=== PATIENT | female | born 1985 | race Two or more races ===

== ENCOUNTER 2017-07-31 14:13 | Emergency (ER) | payer OTHER ==
[2017-07-31] MEDS ORDERED: NS 0.9% 1000 ML* 2,000 ML IV ONE (15:30)
[2017-07-31] MEDS ORDERED: Ondansetron INJ* 2 MG/ML VIAL IV ONE (15:30)
[2017-07-31] MEDS ORDERED: Ketorolac INJ* 30 MG/ML 1 ML VIAL IV ONE (15:30)
[2017-07-31 15:44] LABS: ABS Basophils 0.1 10^3/ul (0-0.2); ABS Eosinophils 0.3 10^3/ul (0-0.6); ABS Lymphocytes 1.1 10^3/ul (1.0-4.8); ABS Monocytes 0.5 10^3/ul (0-0.8); ABS Neutrophils 14.5 10^3/ul (1.5-7.7); ABS Nucleated RBC 0 10^3/ul; Eosinophil % 1.6 % (0-6); Hematocrit 42 % (35-47); Hemoglobin 13.6 g/dl (12.0-16.0); Lymphocyte % 6.6 % (25-47); Mean Corpuscular HGB Conc 33 g/dl (31-36); Mean Corpuscular Hemoglobin 28 pg (27-31); Mean Corpuscular Volume 84 fL (80-97); Mean Platelet Volume 8 um3 (7.4-10.4); Nucleated Red Blood Cells % 0; Platelet Count 295 10^3/ul (150-450); Red Blood Count 4.94 10^6/ul (4.0-5.4); Red Cell Distribution Width 15 % (10.5-15); White Blood Count 16.4 10^3/ul (3.5-10.8)
[2017-07-31 15:47] LABS: INR 0.87 (0.77-1.02)
[2017-07-31 15:53] LABS: EGFR Non-African American 103.1 (>60)
[2017-07-31] MEDS ORDERED: Iohexol 300* (CONTRAST) 10 ML SDV IV ONE (16:10)
[2017-07-31 17:49] LABS: Urine Appearance Cloudy; Urine Blood Negative (Negative); Urine Color Yellow; Urine Ketones Negative (Negative); Urine Protein Negative (Negative); Urine Specific Gravity 1.018 (1.010-1.030); Urine Urobilinogen Negative (Negative)
--- NOTE | 2017-07-31 18:36 | RAD ---
CLINICAL HISTORY: Epigastric pain, left-sided pain, left lower quadrant pain, bloody diarrhea COMPARISON: September 24, 2015 TECHNIQUE: Multiple contiguous axial CT scans were obtained of the abdomen and pelvis after the administration of intravenous contrast. Coronal and sagittal multiplanar reformations are submitted for review. Oral contrast was administered. Delayed images were obtained through the abdomen and pelvis. FINDINGS: LUNG BASES: The lung bases are clear. LIVER: The liver is diffusely low in attenuation compared to the spleen. There are no focal hepatic parenchymal masses. The liver measures 21 cm in long axis. BILE DUCTS: There is no intrahepatic or extrahepatic biliary dilatation. GALLBLADDER: The gallbladder is not visualized. Surgical clips are noted in the gallbladder fossa. PANCREAS: The pancreas is normal, without mass or ductal dilatation. SPLEEN: Normal in size and appearance. UPPER GI TRACT: Evaluation of the gastrointestinal tract is limited by incomplete gastric distention. The upper GI tract is unremarkable. SMALL BOWEL AND MESENTERY: The small bowel is normal in contour, course, and caliber. There is no obstruction or dilatation. COLON: The colon is normal in contour, course, caliber. There is no pericolonic inflammatory change. There is a tubular, vermiform, hollow viscus that is blind ending, and originates from the cecum, consistent with a normal appendix. There is no periappendiceal inflammatory change. This is best seen on axial images 68 through 73 ADRENALS: Normal bilaterally. KIDNEYS: The kidneys are normal in shape, size, contour, and axis. There is no hydronephrosis or nephrolithiasis. BLADDER: The bladder is incompletely distended but is grossly normal. PELVIC ORGANS: The uterus and adnexa are grossly normal for technique. AORTA: The aorta is normal. IVC: Unremarkable LYMPH NODES: There is no lymphadenopathy by size criteria. ABDOMINAL WALL: There is a small fat-containing of focal hernia. BONES AND SOFT TISSUES: Unremarkable OTHER: None IMPRESSION: HEPATOMEGALY WITH FATTY INFILTRATION OF THE LIVER. NO ACUTE CT PATHOLOGY OF THE VISUALIZED ABDOMEN OR PELVIS.
[2017-07-31] MEDS ORDERED: Ondansetron ODT TAB* 4 MG PO ONE (18:45)
[2017-07-31] MEDS ORDERED: Acetaminophen TAB* 325 MG PO ONE (18:45)
[2017-07-31] MEDS ORDERED: Ciprofloxacin TAB* 500 MG PO ONE ×2 (18:46→18:47)
[2017-07-31] MEDS ORDERED: metroNIDAZOLE TAB* 250 MG PO ONE ×2 (18:46→18:47)
[2017-07-31] MEDS ORDERED: O ndansetron ODT 4MG 2TAB PRPK 4 MG PAK PO ONE (18:55)
[2017-07-31 19:07] VITALS: BP 119/80
--- NOTE | 2017-07-31 21:58 | ED ---
Jesse Lemon Sixian, scribed for Thiago Slaughter MD on 07/31/17 at 1535 . Abdominal Pain/Female - HPI Summary HPI Summary: This patient is a 32 year old F presenting to ED with a chief complaint of abdominal pain since 0630 today. She felt dehydrated this morning and vomiting when she drank water. The patient rates the pain 7/10 in severity. Symptoms aggravated by food intake and alleviated by nothing. Patient reports vomiting, diarrhea, nausea, bloody stool. Patient denies sore throat. - History of Current Complaint Chief Complaint: EDAbdPain Stated Complaint: ABD PAIN,VOMITING Time Seen by Provider: 07/31/17 15:16 Hx Obtained From: Patient Hx Last Menstrual Period: 12/01/14 Onset/Duration: Gradual Onset, Lasting Hours, Still Present Timing: Hours Severity Currently: Moderate Pain Intensity: 7 Pain Scale Used: 0-10 Numeric Aggravating Factor(s): Food Alleviating Factor(s): Nothing Associated Signs and Symptoms: Positive: Other: - Patient reports vomitting, diarrhea, nausea, bloody stool. Patient denies sore throat. Allergies/Adverse Reactions: Allergies Allergy/AdvReac Type Severity Reaction Status Date / Time morphine Allergy Mild See Comment Verified 07/31/17 18:48 tramadol Allergy Mild Palpitation Verified 07/31/17 18:48 s clavulanic acid Allergy Unknown Unknown Verified 07/31/17 18:48 Reaction Details PMH/Surg Hx/FS Hx/Imm Hx Endocrine/Hematology History: Denies: Hx Diabetes, Hx Thyroid Disease Cardiovascular History: Denies: Hx Congestive Heart Failure, Hx Hypertension Respiratory History: Reports: Hx Asthma, Hx Pneumonia, Hx Seasonal Allergies Denies: Hx Chronic Obstructive Pulmonary Disease (COPD) GI History: Reports: Hx Gall Bladder Disease - cholecystectomy, Hx Irritable Bowel, Other GI Disorders - IBS?,DX'D W/ENDOMETRIOSIS Denies: Hx Ulcer History: Reports: Hx Kidney Infection, Hx Kidney Stones, Other Problems/ Disorders - PYELONEPHRITIS Denies: Hx Renal Disease Musculoskeletal History: Reports: Hx Back Problems - 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), Hx Bursitis - left hip Comment Only: Other Musculoskeletal History - BURSITIS LEFT HIP Sensory History: Reports: Hx Contacts or Glasses Opthamlomology History: Reports: Hx Contacts or Glasses Psychiatric History: Reports: Hx Anxiety, Hx Depression - Surgical History Surgery Procedure, Year, and Place: BLANCA/C-SECTIONS/TUBAL LIGATION, right foot surgery, left thumb Hx Anesthesia Reactions: No - Immunization History Date of Tetanus Vaccine: Unk Date of Influenza Vaccine: None Infectious Disease History: No Infectious Disease History: Reports: Hx of Known/Suspected MRSA - 2 years ago Denies: Hx Clostridium Difficile, Hx Hepatitis, Hx Human Immunodeficiency Virus (HIV), Hx Shingles, Hx Tuberculosis, Hx Known/Suspected VRE, Hx Known/ Suspected VRSA, History Other Infectious Disease, Traveled Outside the [place] in Last 30 Days - Family History Known Family History: Positive: Diabetes Negative: Hypertension - Social History Alcohol Use: Occasionally Hx Substance Use: No Substance Use Type: Reports: Marijuana Substance Use Comment - Amount & Last Used: OPIATES AND "INA" hx Hx Tobacco Use: Yes Smoking Status (MU): Heavy Every Day Tobacco Smoker Type: Cigarettes Amount Used/How Often: 0.5 PPD Length of Time of Smoking/Using Tobacco: 10 years Have You Smoked in the Last Year: Yes Review of Systems Negative: Sore Throat Positive: Abdominal Pain, Vomiting, Diarrhea, Nausea All Other Systems Reviewed And Are Negative: Yes Physical Exam - Summary Physical Exam Summary: General: well-appearing, mild pain and distress Skin: warm, color reflects adequate perfusion, dry Head: normal Eyes: EOMI, RUSLAN ENT: normal Neck: supple, nontender Respiratory: CTA, breath sounds present Cardiovascular: RRR Abdomen: soft, Epigastrium and LLQ tenderness Bowel: present Musculoskeletal: normal, strength/ROM intact Neurological: normal, sensory/motor intact, A&O x3 Psychological: affect/mood appropriate Triage Information Reviewed: Yes Vital Signs On Initial Exam: Initial Vitals Temp Pulse Resp BP Pulse Ox 98.8 F 128 22 124/87 98 07/31/17 14:15 07/31/17 14:15 07/31/17 14:15 07/31/17 14:15 07/31/17 14:15 Vital Signs Reviewed: Yes Diagnostics - Vital Signs Vital Signs Temp Pulse Resp BP Pulse Ox 07/31/17 14:15 98.8 F 128 22 124/87 98 - Laboratory Lab Results: Lab Results 07/31/17 07/31/17 07/31/17 Range/Units 15:28 15:28 15:28 WBC 16.4 H (3.5-10.8) 10^3/ul RBC 4.94 (4.0-5.4) 10^6/ul Hgb 13.6 (12.0-16.0) g/dl Hct 42 (35-47) % MCV 84 (80-97) fL MCH 28 (27-31) pg MCHC 33 (31-36) g/dl RDW 15 (10.5-15) % Plt Count 295 (150-450) 10^3/ul MPV 8 (7.4-10.4) um3 Neut % (Auto) 88.5 H (38-83) % Lymph % (Auto) 6.6 L (25-47) % [place] % (Auto) 2.9 (0-7) % Eos % (Auto) 1.6 (0-6) % Baso % (Auto) 0.4 (0-2) % Absolute Neuts (auto) 14.5 H (1.5-7.7) 10^3/ul Absolute Lymphs (auto) 1.1 (1.0-4.8) 10^3/ul Absolute Monos (auto) 0.5 (0-0.8) 10^3/ul Absolute Eos (auto) 0.3 (0-0.6) 10^3/ul Absolute Basos (auto) 0.1 (0-0.2) 10^3/ul Absolute Nucleated RBC 0 10^3/ul Nucleated RBC % 0 INR (Anticoag Therapy) (0.77-1.02) APTT (26.0-36.3) seconds Sodium 135 (133-145) mmol/L Potassium 4.1 (3.5-5.0) mmol/L Chloride 105 (101-111) mmol/L Carbon Dioxide 23 (22-32) mmol/L Anion Gap 7 (2-11) mmol/L BUN 11 (6-24) mg/dL Creatinine 0.66 (0.51-0.95) mg/dL Est GFR ( Amer) 132.6 (>60) Est GFR (Non-Af Amer) 103.1 (>60) BUN/Creatinine Ratio 16.7 (8-20) Glucose 113 H (70-100) mg/dL Lactic Acid 1.1 (0.5-2.0) mmol/L Calcium 9.5 (8.6-10.3) mg/dL Total Bilirubin 0.50 (0.2-1.0) mg/dL AST 15 (13-39) U/L ALT 15 (7-52) U/L Alkaline Phosphatase 79 (34-104) U/L C-Reactive Protein 9.28 H (< 5.00) mg/L Total Protein 7.3 (6.4-8.9) g/dL Albumin 4.2 (3.2-5.2) g/dL Globulin 3.1 (2-4) g/dL Albumin/Globulin Ratio 1.4 (1-3) Lipase 11 (11.0-82.0) U/L Beta HCG, Quant < 0.60 mIU/mL Urine Color Urine Appearance Urine pH (5-9) Ur Specific [place] (1.010-1.030) Urine Protein (Negative) Urine Ketones (Negative) Urine Blood (Negative) Urine Nitrate (Negative) Urine Bilirubin (Negative) Urine Urobilinogen (Negative) Ur Leukocyte Esterase (Negative) Urine Glucose (Negative) 07/31/17 07/31/17 Range/Units 15:28 17:20 WBC (3.5-10.8) 10^3/ul RBC (4.0-5.4) 10^6/ul Hgb (12.0-16.0) g/dl Hct (35-47) % MCV (80-97) fL MCH (27-31) pg MCHC (31-36) g/dl RDW (10.5-15) % Plt Count (150-450) 10^3/ul MPV (7.4-10.4) um3 Neut % (Auto) (38-83) % Lymph % (Auto) (25-47) % [place] % (Auto) (0-7) % Eos % (Auto) (0-6) % Baso % (Auto) (0-2) % Absolute Neuts (auto) (1.5-7.7) 10^3/ul Absolute Lymphs (auto) (1.0-4.8) 10^3/ul Absolute Monos (auto) (0-0.8) 10^3/ul Absolute Eos (auto) (0-0.6) 10^3/ul Absolute Basos (auto) (0-0.2) 10^3/ul Absolute Nucleated RBC 10^3/ul Nucleated RBC % INR (Anticoag Therapy) 0.87 (0.77-1.02) APTT 30.0 (26.0-36.3) seconds Sodium (133-145) mmol/L Potassium (3.5-5.0) mmol/L Chloride (101-111) mmol/L Carbon Dioxide (22-32) mmol/L Anion Gap (2-11) mmol/L BUN (6-24) mg/dL Creatinine (0.51-0.95) mg/dL Est GFR ( Amer) (>60) Est GFR (Non-Af Amer) (>60) BUN/Creatinine Ratio (8-20) Glucose (70-100) mg/dL Lactic Acid (0.5-2.0) mmol/L Calcium (8.6-10.3) mg/dL Total Bilirubin (0.2-1.0) mg/dL AST (13-39) U/L ALT (7-52) U/L Alkaline Phosphatase (34-104) U/L C-Reactive Protein (< 5.00) mg/L Total Protein (6.4-8.9) g/dL Albumin (3.2-5.2) g/dL Globulin (2-4) g/dL Albumin/Globulin Ratio (1-3) Lipase (11.0-82.0) U/L Beta HCG, Quant mIU/mL Urine Color Yellow Urine Appearance Cloudy Urine pH 5.0 (5-9) Ur Specific [place] 1.018 (1.010-1.030) Urine Protein Negative (Negative) Urine Ketones Negative (Negative) Urine Blood Negative (Negative) Urine Nitrate Negative (Negative) Urine Bilirubin Negative (Negative) Urine Urobilinogen Negative (Negative) Ur Leukocyte Esterase Negative (Negative) Urine Glucose Negative (Negative) Result Diagrams: 07/31/17 15:28 07/31/17 15:28 Lab Statement: Any lab studies that have been ordered have been reviewed, and results considered in the medical decision making process. - CT abd/pel CT Interpretation Completed By: Radiologist - HEPATOMEGALY WITH FATTY INFILTRATION OF THE LIVER. NO ACUTE CT PATHOLOGY OF THE VISUALIZED ABDOMEN OR PELVIS. ED physician has reviewed this radiology report. Abdominal Pain Fem Course/Dx - Course Course Of Treatment: BP noted and advised to follow up with PCP. Medications reviewed. Allergies noted. DISCUSSED RESULTS WITH PATIENT. WILL TREAT WITH CIPRO/FLAGYL DUE TO FEVER. PATIENT REPORTS SHE PREFERS TO GO HOME. F/U PMD; RETURN IF WORSE. - Diagnoses Provider Diagnoses: Elevated BP without diagnosis of hypertension, Abdominal pain, Vomiting and diarrhea Discharge - Discharge Plan Condition: Stable Disposition: HOME Prescriptions: Ciprofloxacin TAB* [Cipro 500 MG TAB*] 500 mg PO BID #8 tab metroNIDAZOLE [Flagyl 500 MG TAB] 500 mg PO TID #13 tab Ondansetron ODT TAB* [Zofran 4 MG Odt TAB*] 4 mg PO Q6H PRN #10 tab.odt PRN Reason: Nausea Patient Education Materials: Acute Nausea and Vomiting (ED), Abdominal Pain (ED ) Referrals: Oneil Diane MD [Primary Care Provider] - Additional Instructions: FOLLOW UP WITH YOUR DOCTOR. RETURN TO THE EMERGENCY DEPARTMENT FOR ANY WORSENING OF YOUR CONDITION OR QUESTIONS OR CONCERNS. YOUR BLOOD PRESSURE WAS ELEVATED TODAY; FOLLOW UP WITH YOUR PRIMARY CARE DOCTOR WITHIN THE NEXT 1 WEEK. The documentation as recorded by the Jesse austin Sixian accurately reflects the service I personally performed and the decisions made by me, Thiago Slaughter MD.
== END 2017-07-31 19:21 | disposition home or self-care (01) ==
LOC: ED 14:13
DX: R10.9 Unspecified abdominal pain (principal); R11.2 Nausea with vomiting, unspecified; R19.7 Diarrhea, unspecified; I10 Essential (primary) hypertension; K76.0 Fatty (change of) liver, not elsewhere classified; F17.210 Nicotine dependence, cigarettes, uncomplicated; Z88.8 Allergy status to other drugs, medicaments and biological substances; Z88.5 Allergy status to narcotic agent
CPT/HCPCS: 36415; 74177; 80053; 81003; 83605; 83690; 84702; 85025; 85610; 85730; 86140; 87040; 96361; 96374; 96375; 99284; A9270-GY; J1885; J2405; Q9967

== ENCOUNTER 2017-08-04 16:59 | Emergency (ER) | payer OTHER ==
--- NOTE | 2017-08-04 19:13 | ED ---
Abdominal Pain/Female - HPI Summary HPI Summary: This 32-year-old female comes back to the emergency department today after being seen 3 days ago with chief complaint of nausea vomiting diarrhea she has continued nausea vomiting diarrhea she's had no fevers she did have a bloody stool today which she described as watery with blood in it she was able to tolerate a bowl of rice this afternoon but that was her only meal she states that she is only been able to eat 3 times since being seen here with us 3 days ago she denies any recent travel denies any illness contacts denies antibiotic except for the one she's been given she denies any alcohol use with the Flagyl - History of Current Complaint Chief Complaint: EDAbdPain Stated Complaint: ABD PAIN/BLOOD IN STOOL Time Seen by Provider: 08/04/17 19:12 Hx Obtained From: Patient Hx Last Menstrual Period: 07/2017 ?: No Onset/Duration: Gradual Onset, Lasting Days - 3, Still Present Timing: Constant Severity Initially: Moderate Severity Currently: Moderate Pain Intensity: 7 Pain Scale Used: 0-10 Numeric Location: Discrete At: RUQ, Discrete At: LLQ Radiates: No Aggravating Factor(s): Food Alleviating Factor(s): Nothing Associated Signs and Symptoms: Positive: Nausea, Vomiting, Diarrhea Allergies/Adverse Reactions: Allergies Allergy/AdvReac Type Severity Reaction Status Date / Time morphine Allergy Mild See Comment Verified 07/31/17 18:48 tramadol Allergy Mild Palpitation Verified 07/31/17 18:48 s clavulanic acid Allergy Unknown Unknown Verified 07/31/17 18:48 Reaction Details PMH/Surg Hx/FS Hx/Imm Hx Previously Healthy: No Endocrine/Hematology History: Denies: Hx Diabetes, Hx Thyroid Disease Cardiovascular History: Denies: Hx Congestive Heart Failure, Hx Hypertension Respiratory History: Reports: Hx Asthma, Hx Pneumonia, Hx Seasonal Allergies Denies: Hx Chronic Obstructive Pulmonary Disease (COPD) GI History: Reports: Hx Gall Bladder Disease - cholecystectomy, Hx Irritable Bowel, Other GI Disorders - IBS?,DX'D W/ENDOMETRIOSIS Denies: Hx Ulcer History: Reports: Hx Kidney Infection, Hx Kidney Stones, Other Problems/ Disorders - PYELONEPHRITIS Denies: Hx Renal Disease Musculoskeletal History: Reports: Hx Back Problems - 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), Hx Bursitis - left hip Comment Only: Other Musculoskeletal History - BURSITIS LEFT HIP Sensory History: Reports: Hx Contacts or Glasses Opthamlomology History: Reports: Hx Contacts or Glasses Psychiatric History: Reports: Hx Anxiety, Hx Depression - Cancer History Hx Hematologic Symptoms: No Hx Chemotherapy: No Hx Radiation Therapy: No Hx Palliative Cancer Treatment: No - Surgical History Surgery Procedure, Year, and Place: BLANCA/C-SECTIONS/TUBAL LIGATION, right foot surgery, left thumb Hx Anesthesia Reactions: No - Immunization History Date of Tetanus Vaccine: Unk Date of Influenza Vaccine: None Infectious Disease History: No Infectious Disease History: Reports: Hx of Known/Suspected MRSA - 2 years ago Denies: Hx Clostridium Difficile, Hx Hepatitis, Hx Human Immunodeficiency Virus (HIV), Hx Shingles, Hx Tuberculosis, Hx Known/Suspected VRE, Hx Known/ Suspected VRSA, History Other Infectious Disease, Traveled Outside the [place] in Last 30 Days - Family History Known Family History: Positive: None, Diabetes Negative: Hypertension - Social History Occupation: Employed Full-time - in a restaurant Lives: With Family Alcohol Use: Occasionally Hx Substance Use: No Substance Use Type: Reports: Marijuana Substance Use Comment - Amount & Last Used: OPIATES AND "INA" hx Hx Tobacco Use: Yes Smoking Status (MU): Heavy Every Day Tobacco Smoker Type: Cigarettes Amount Used/How Often: 0.5 PPD Length of Time of Smoking/Using Tobacco: 10 years Have You Smoked in the Last Year: Yes Cessation Counseling: Patient Advised to Stop Review of Systems Constitutional: Other Positive: Fatigue Eyes: Negative ENT: Negative Cardiovascular: Negative Respiratory: Negative Gastrointestinal: Other Positive: Abdominal Pain, Vomiting, Diarrhea, Nausea Genitourinary: Negative Musculoskeletal: Negative Skin: Negative Neurological: Negative Psychological: Normal All Other Systems Reviewed And Are Negative: Yes Physical Exam Triage Information Reviewed: Yes Vital Signs On Initial Exam: Initial Vitals Temp Pulse Resp BP Pulse Ox 98.0 F 98 16 130/78 99 08/04/17 17:06 08/04/17 17:06 08/04/17 17:06 08/04/17 17:06 08/04/17 17:06 Vital Signs Reviewed: Yes Appearance: Positive: Well-Nourished, Ill-Appearing - mild, Pain Distress - mild Skin: Positive: Warm, Skin Color Reflects Adequate Perfusion, Dry Head/Face: Positive: Normal Head/Face Inspection Eyes: Positive: Normal, EOMI, RUSLAN ENT: Positive: Normal ENT inspection, Hearing grossly normal. Negative: Nasal congestion, Trismus, Muffled voice, Hoarse voice, Dental tenderness Neck: Positive: Supple, Nontender Respiratory/Lung Sounds: Positive: Breath Sounds Present Cardiovascular: Positive: Normal, RRR, Pulses are Symmetrical in both Upper and Lower Extremities Abdomen Description: Positive: Soft, Other: - ruq and llq discomfort with palpation. Negative: CVA Tenderness (R), CVA Tenderness (L), Distended, Guarding, Hepatomegaly, McBurney's Point Tenderness Bowel Sounds: Positive: Present Musculoskeletal: Positive: Normal, Strength/ROM Intact Neurological: Positive: Normal, Sensory/Motor Intact, Alert, Oriented to Person Place, Time Psychiatric: Positive: Normal AVPU Assessment: Alert - Jose Coma Scale Best Eye Response: 4 - Spontaneous Best Motor Response: 6 - Obeys Commands Best Verbal Response: 5 - Oriented Coma Scale Total: 15 Diagnostics - Vital Signs Vital Signs Temp Pulse Resp BP Pulse Ox 08/04/17 17:06 98.0 F 98 16 130/78 99 - Laboratory Result Diagrams: 08/04/17 20:00 08/04/17 20:00 Diagnostic Studies Comment: Ultrasound report her imaging precision honer mildly enlarged fatty liver with no acute changes similarly diagnosis report from the CT scan earlier in the week Lab Statement: Any lab studies that have been ordered have been reviewed, and results considered in the medical decision making process. Re-Evaluation - Re-Evaluation First Eval Change: Improved - Patient has not vomited or had diarrhea in the past 6 hours since she's been in the emergency department patient is currently eating a clear liquid frozen ice Second Eval Change: Improved - Patient tolerated clear liquids well we'll discharge to home with family follow-up with Dr. Herrera on Wednesday return to the emergency department for worsening symptoms or should symptoms fail to resolve Abdominal Pain Fem Course/Dx - Course Course Of Treatment: Complete course of antibiotics as prescribed advance diet from clear liquids slowly follow-up with Dr. Herrera on Wednesday return to the emergency Department meantime should symptoms fail to resolve or worsen in any way - Diagnoses Provider Diagnoses: Acute diarrhea, Nausea & vomiting, Fatty liver, Elevated liver enzymes, Viral illness - Provider Notifications Discussed Care Of Patient With: Russell Mckeon - Prior to discharge and care planning Discharge - Discharge Plan Condition: Stable Disposition: HOME Patient Education Materials: Acute Nausea and Vomiting (ED), Acute Diarrhea (ED ), Nutrition Tips for Relief of Diarrhea (ED) Forms: *Work Release Referrals: Oneil Diane MD [Primary Care Provider] - 2 Days
[2017-08-04] MEDS ORDERED: NS 0.9% 1000 ML* 1,000 ML IV ONE (19:30)
[2017-08-04] MEDS ORDERED: Ketorolac INJ* 30 MG/ML 1 ML VIAL IV PUSH ONE (19:51)
[2017-08-04] MEDS ORDERED: Ondansetron INJ* 2 MG/ML VIAL IV ONE (19:52)
[2017-08-04 20:25] LABS: EGFR Non-African American 108.8 (>60)
[2017-08-04 20:31] LABS: INR 0.91 (0.77-1.02)
[2017-08-04 20:43] LABS: ABS Basophils 0 10^3/ul (0-0.2); ABS Eosinophils 0.4 10^3/ul (0-0.6); ABS Monocytes 0.5 10^3/ul (0-0.8); ABS Neutrophils 5.1 10^3/ul (1.5-7.7); ABS Nucleated RBC 0 10^3/ul; Eosinophil % 4.3 % (0-6); Hematocrit 37 % (35-47); Lymphocyte % 32.8 % (25-47); Mean Corpuscular HGB Conc 33 g/dl (31-36); Mean Corpuscular Hemoglobin 27 pg (27-31); Mean Corpuscular Volume 84 fL (80-97); Mean Platelet Volume 9 um3 (7.4-10.4); Nucleated Red Blood Cells % 0.2; Platelet Count 295 10^3/ul (150-450); Red Blood Count 4.37 10^6/ul (4.0-5.4); Red Cell Distribution Width 15 % (10.5-15)
[2017-08-04 21:54] LABS: Urine Appearance Clear; Urine Blood Negative (Negative); Urine Color Yellow; Urine Ketones Negative (Negative); Urine Protein Negative (Negative); Urine Specific Gravity 1.016 (1.010-1.030); Urine Urobilinogen Negative (Negative)
[2017-08-05 00:47] VITALS: BP 112/68
--- NOTE | 2017-08-05 07:44 | RAD ---
INDICATION: Right upper quadrant pain, elevated liver enzymes. COMPARISON: Comparison is made of a prior CT of the abdomen and pelvis from July 31, 2017. TECHNIQUE: Multiple real-time images of the right upper quadrant were obtained. FINDINGS: The patient is status post cholecystectomy. No intra or extrahepatic ductal distention is present. The common bile duct measured 0.4 cm in diameter. The liver is mildly enlarged and increased in echogenicity consistent with fatty infiltration correlating with the prior CT study. No focal abnormality is seen. The pancreas is partially obscured by overlying bowel gas. The right kidney is normal in size without evidence for hydronephrosis. IMPRESSION: 1. STATUS POST CHOLECYSTECTOMY. 2. MILD HEPATOMEGALY AND HEPATIC STEATOSIS.
== END 2017-08-05 00:45 | disposition home or self-care (01) ==
LOC: ED 16:59
DX: R19.7 Diarrhea, unspecified (principal); R11.2 Nausea with vomiting, unspecified; K76.0 Fatty (change of) liver, not elsewhere classified; B34.9 Viral infection, unspecified; R74.9 Abnormal serum enzyme level, unspecified; F17.210 Nicotine dependence, cigarettes, uncomplicated; Z90.49 Acquired absence of other specified parts of digestive tract
CPT/HCPCS: 36415; 76705; 80053; 80074; 81003; 83605; 83690; 84702; 85025; 85610; 86140; 86308; 96361; 96374; 96375; 99284; J1885; J2405

== ENCOUNTER → 2017-12-29 17:45 | Emergency (ER) | payer OTHER ==
[~2017-12-29 17:45] MED LIST: Al Hydrox/Mg Hydrox/Simet LIQ* 30 ML UDC PO ONE; Ketorolac INJ* 30 MG/ML 1 ML VIAL IV PUSH ONE; Lidocaine 2% VISCOUS* 15 ML UDC PO ONE; NS 0.9% 1000 ML* 1,000 ML IV ONE; Ondansetron INJ* 2 MG/ML VIAL IV ONE; fentaNYL* 50 MCG/ML 2 ML VIAL (100 MCG VIAL) IV SLOW PU ONE
--- NOTE | 2017-12-29 18:18 | ED ---
HPI Chest Pain - HPI Summary HPI Summary: This is [facility] documenting for attending Laura Garcia MD. Pt is a 32 y/o F c/o CP onset 45 mins ago. Pain is located in the mid sternum radiating through to her back and is rated a 9/10. Assoc. Sx: bilat LE tingling , CP, chills. She was at the grocery store when she started experiencing Sx. Pt reports she felt like she was going to pass out. SHx: quit 4 months ago: smoked 1 ppd prior. Allergies: Augmentin, morphine. - History of Current Complaint Chief Complaint: EDChestPainROMI Time Seen by Provider: 12/29/17 17:54 Hx Obtained From: Patient Hx Last Menstrual Period: 07/2017 Onset/Duration: Started Minutes Ago - 45 mins, Atraumatic, Still Present Timing: Constant Initial Severity: Severe Current Severity: Severe Pain Intensity: 9 Pain Scale Used: 0-10 Numeric Chest Pain Location: Mid Sternal Chest Pain Radiates: Yes Chest Pain Radiates To:: Back Alleviating Factor(s): Nothing Associated Signs and Symptoms: Positive: Chest Pain, Tingling - bilat LE - Additional Pertinent History Primary Care Physician: [id number] - Allergy/Home Medications Allergies/Adverse Reactions: Allergies Allergy/AdvReac Type Severity Reaction Status Date / Time morphine Allergy Mild See Comment Verified 07/31/17 18:48 tramadol Allergy Mild Palpitation Verified 07/31/17 18:48 s clavulanic acid Allergy Unknown Unknown Verified 07/31/17 18:48 Reaction Details PMH/Surg Hx/FS Hx/Imm Hx Endocrine/Hematology History: Denies: Hx Diabetes, Hx Thyroid Disease Cardiovascular History: Denies: Hx Congestive Heart Failure, Hx Hypertension Respiratory History: Reports: Hx Asthma, Hx Pneumonia, Hx Seasonal Allergies Denies: Hx Chronic Obstructive Pulmonary Disease (COPD) GI History: Reports: Hx Gall Bladder Disease - cholecystectomy, Hx Irritable Bowel, Other GI Disorders - IBS?,DX'D W/ENDOMETRIOSIS Denies: Hx Ulcer History: Reports: Hx Kidney Infection, Hx Kidney Stones, Other Problems/ Disorders - PYELONEPHRITIS Denies: Hx Renal Disease Musculoskeletal History: Reports: Hx Back Problems - 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), Hx Bursitis - left hip Comment Only: Other Musculoskeletal History - BURSITIS LEFT HIP Sensory History: Reports: Hx Contacts or Glasses Opthamlomology History: Reports: Hx Contacts or Glasses Psychiatric History: Reports: Hx Anxiety, Hx Depression - Cancer History Hx Hematologic Symptoms: No Hx Chemotherapy: No Hx Radiation Therapy: No Hx Palliative Cancer Treatment: No - Surgical History Surgery Procedure, Year, and Place: BLANCA/C-SECTIONS/TUBAL LIGATION, right foot surgery, left thumb Hx Anesthesia Reactions: No - Immunization History Date of Tetanus Vaccine: Unk Date of Influenza Vaccine: None Infectious Disease History: No Infectious Disease History: Reports: Hx of Known/Suspected MRSA - 2 years ago Denies: Hx Clostridium Difficile, Hx Hepatitis, Hx Human Immunodeficiency Virus (HIV), Hx Shingles, Hx Tuberculosis, Hx Known/Suspected VRE, Hx Known/ Suspected VRSA, History Other Infectious Disease, Traveled Outside the [place] in Last 30 Days - Family History Known Family History: Positive: Diabetes Negative: Hypertension - Social History Occupation: Employed Full-time Lives: With Family Alcohol Use: Occasionally Hx Substance Use: No Substance Use Type: Reports: Marijuana Substance Use Comment - Amount & Last Used: OPIATES AND "INA" hx Hx Tobacco Use: Yes Smoking Status (MU): Heavy Every Day Tobacco Smoker Type: Cigarettes Amount Used/How Often: 0.5 PPD Length of Time of Smoking/Using Tobacco: 10 years Have You Smoked in the Last Year: Yes Review of Systems Positive: Chills. Negative: Fever Positive: Chest Pain Neurological: Other - Pos: bilat LE tingling All Other Systems Reviewed And Are Negative: Yes Physical Exam - Summary Physical Exam Summary: GENERAL: Patient is a well developed and nourished F who is noticeably uncomfortable secondary to pain. Patient is not in any acute respiratory distress. HEAD AND FACE: Normocephalic EYES: PERRLA, EOMI x 2. EARS: Hearing grossly intact. MOUTH: Oropharynx within normal limits. NECK: Supple, trachea is midline, no adenopathy, no JVD, no carotid bruit. CHEST: Symmetric, no tenderness at palpation LUNGS: Clear to auscultation bilaterally. No wheezing or crackles. CVS: Regular rate and rhythm, S1 and S2 present, no murmurs or gallops appreciated. ABDOMEN: Soft, non-tender. Bowel sounds are normal. No abdominal abnormal pulsations. EXTREMITIES: Full ROM in all major joints, no edema, no cyanosis or clubbing. NEURO: Alert and oriented x 3. No acute neurological deficits. Speech is normal and follows commands. SKIN: Dry and warm Triage Information Reviewed: Yes Vital Signs On Initial Exam: Initial Vitals Temp Pulse Resp BP Pulse Ox 97.9 F 94 20 135/92 100 12/29/17 17:48 12/29/17 17:48 12/29/17 17:48 12/29/17 17:48 12/29/17 17:48 Vital Signs Reviewed: Yes Diagnostics - Vital Signs Vital Signs Temp Pulse Resp BP Pulse Ox 12/29/17 17:48 97.9 F 94 20 135/92 100 - Laboratory Result Diagrams: 12/29/17 18:28 12/29/17 18:28 Lab Statement: Any lab studies that have been ordered have been reviewed, and results considered in the medical decision making process. - Radiology CXR Xray Interpretation: No Acute Changes - IMPRESSION: No radiographic evidence for acute cardiopulmonary abnormality on this portable chest x-ray. Radiology Interpretation Completed By: Radiologist - Provider has reviewed report. - EKG 1756 Cardiac Rate: NL - bpm EKG Rhythm: Sinus Rhythm ST Segment: Normal Chest Pain Course/Dx - Course Course Of Treatment: 32-year-old female who presents to the emergency room with an acute onset of chest pain radiating to her back. The patient was given fentanyl but much improvement. Her workup included an first set of troponin and d-dimer are unremarkable, chest x-ray shows no acute cardiopulmonary process. 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 The patient was additionally given Toradol and reports much improvement. A second troponin was repeated which remains normal. Patient is low risk for ACS by heart score and is PERCNegative plus has a negative d-dimer and so I think patient's pain is most likely Musculoskeletal in nature. Patient is otherwise hemodynamically stable and safe for discharge home with strict return precautions and will otherwise follow -up with her doctor. - Diagnoses Provider Diagnoses: Chest pain Discharge - Sign-Out/Discharge Documenting (check all that apply): Patient Departure - Discharge Plan Condition: Stable Disposition: HOME Referrals: Oneil Diane MD [Primary Care Provider] - 3 Days Additional Instructions: Follow up with your primary care physician in 1-3 days. RETURN TO THE EMERGENCY DEPARTMENT FOR CHANGING OR WORSENING SYMPTOMS. - Billing Disposition and Condition Condition: STABLE Disposition: Home
[2017-12-29 18:40] LABS: ABS Basophils 0.1 10^3/ul (0-0.2); ABS Eosinophils 0.1 10^3/ul (0-0.6); ABS Lymphocytes 2.1 10^3/ul (1.0-4.8); ABS Monocytes 0.5 10^3/ul (0-0.8); ABS Neutrophils 6.9 10^3/ul (1.5-7.7); ABS Nucleated RBC 0 10^3/ul; Eosinophil % 1.1 % (0-6); Hematocrit 35 % (35-47); Hemoglobin 11.4 g/dl (12.0-16.0); Lymphocyte % 21.8 % (25-47); Mean Corpuscular HGB Conc 33 g/dl (31-36); Mean Corpuscular Hemoglobin 27 pg (27-31); Mean Corpuscular Volume 83 fL (80-97); Mean Platelet Volume 8.5 um3 (7.4-10.4); Nucleated Red Blood Cells % 0; Platelet Count 278 10^3/ul (150-450); Red Blood Count 4.15 10^6/ul (4.00-5.40); Red Cell Distribution Width 15 % (10.5-15); White Blood Count 9.7 10^3/ul (3.5-10.8)
--- NOTE | 2017-12-29 18:49 | RAD ---
INDICATION: Chest pain COMPARISON: Similar chest x-ray August 20, 2015 TECHNIQUE: Single AP portable view of the chest was obtained. FINDINGS: Image quality is compromised due to the relative inferiority of a portable chest x-ray. The heart and mediastinum exhibit normal size and contour. The lungs are grossly clear. There is no evidence of a large pleural effusion. Visualized bones are normal for the patient's age. IMPRESSION: No radiographic evidence for acute cardiopulmonary abnormality on this portable chest x-ray.
[2017-12-29 18:50] LABS: INR 0.95 (0.77-1.02)
[2017-12-29 22:26] VITALS: BP 124/74
== END | disposition home or self-care (01) ==
LOC: ED 17:45
DX: R07.9 Chest pain, unspecified (principal); F17.210 Nicotine dependence, cigarettes, uncomplicated; Z88.3 Allergy status to other anti-infective agents; Z88.5 Allergy status to narcotic agent
CPT/HCPCS: 36415; 71045; 80053; 83605; 83880; 84484; 84702; 85025; 85379; 85610; 85730; 93005; 96361; 96374; 96375; 99282; A9270-GY; J1885; J2405; J3010